=== PATIENT | female | born 1990 | race Hispanic/Latino ===

== ENCOUNTER 2021-12-01 11:39 | Outpatient (CLI) | payer SELFPAY ==
[2021-12-01 12:15] VITALS: BMI 37.0
[2021-12-01 12:53] VITALS: BP 114/72; PULSE 76
[2021-12-01 12:54] VITALS: TEMP 36.8
[2021-12-01 13:19] LABS: ROM Internal Control Test YES-OK TO RESULT pt. (Internal QC); ROM Patient Test Negative (Negative)
--- NOTE | 2021-12-01 18:58 | OB.TRI.NOTE ---
HPI - General HPI Narrative GEMA VALE, is a 31 F who presents for leakage of fluid at 38w4d. PFSH PFSH Home Medications cyanocobalamin (vitamin B-12) [Vitamin B-12] tab PO 12/01/21 [History Last Taken 11/29/21 21:00] [id number] [] tab PO 12/01/21 [History Last Taken 11/29/21 21:00] Allergy/AdvReac Type Severity Reaction Status Date / Time No Known Allergies Allergy Verified 12/01/21 12:18 NST FHR Rate Baby A Baseline: 140 Variability:: Moderate Accelerations:: 15 x 15 Decelerations:: Variable NST Reactive:: Yes Uterine Activity:: Irregular Assessment & Plan (1) Vaginal discharge during : PLAN: 1) ROM plus negative 2) No signs of labor 3) One variable deceleration, reactive strip 4) D/C home
== END 2021-12-01 15:00 | disposition home or self-care (01) ==
LOC: WPOUT 12:05 → WP 12:06
PROVIDERS: Visit Provider Advanced Practice Midwife
DX: O26.893 Other specified pregnancy related conditions, third trimester (principal); N89.8 Other specified noninflammatory disorders of vagina; O76 Abnormality in fetal heart rate and rhythm complicating labor and delivery; Z3A.38 38 weeks gestation of pregnancy
CPT/HCPCS: 59025; 59050; 84112; 99218; G0378

== ENCOUNTER 2021-12-08 09:55 | Inpatient (IN) | payer SELFPAY ==
[2021-12-08] VITALS (15 sets, daily range): BP systolic 91–126; BP diastolic 43–83; PULSE 66–102; RESP 18; TEMP 36.1–37.2; O2SAT 96–98; BMI 37.5
[2021-12-08] MEDS: Lactated Ringers 1,000 ML 999 ML IV (10:15)
[2021-12-08 10:33] LABS: Absolute Neutrophil Count 6.7 X10^3/uL (2.0-7.7); Basophil# 0.02 X10^3/uL; Basophil% 0.2 % (0-1); Eosinophil# 0.06 X10^3/uL; Eosinophils% 0.7 % (0-5); Hematocrit 38.3 % (37-47); Hemoglobin 12.4 g/dL (12.0-15.0); Lymphocyte % 18.7 % (19-41); Mean Corp Hgb Conc 32.4 g/dL (32-36); Mean Corpuscular Hgb 29.5 pg (27.0-32.0); Mean Corpuscular Volume 91.2 fL (81-99); Mean Platelet Vol. 11.4 fl (6.2-12.0); Monocyte# 0.56 X10^3/uL; Monocyte% 6.2 % (0-10); NRBC Flagged by Analyzer 0 % (0-5); Neutrophil # 6.66 X10^3/uL (2.7-7.7); Neutrophil % 73.1 % (47-70); Platelet Count 192 K/mm3 (150-450); RBC Distribution Width CV 14.5 % (11.6-14.6); RBC Distribution Width SD 47.8 fl (35.1-43.9); White Blood Count 9.1 K/mm3 (4.4-11.0)
[2021-12-08] MEDS: Sodium Citrate/Citric Acid 30 ML UDC PO (12:28)
[2021-12-08] MEDS: Cefazolin 2 GM in 0.9% Normal Saline 100 ML IV (12:40)
--- NOTE | 2021-12-08 12:52 | EX.PCM.OBRPT ---
Assessment & Plan (1) Spontaneous onset of labor: (2) 39 weeks gestation of : (3) Previous delivery affecting : Maternal Data Information Final HARRISON: 12/11/21 Gestational age: 39 4/7 Details Operative Information Date of Procedure: 12/08/21 Pre-Operative Diagnosis: labor, previous c/s, suspected LGA fetus Post-Operative Diagnosis: same Indications for : Repeat Elective Classification: CARMINA Procedure Type: low transverse mechanical research engineer #1: Wendy Wolfe Type of Anesthesia: Spinal Anesthesiologist: Aron Bennett Special Medications: duramorph Antibiotic Given: Ancef 2 grams IV x1 Drain: Zapata to straight drain Estimated Blood Loss: 800 Fluids Replaced: 1000 Procedure Start Time: 12:57 Procedure Stop Time: 12:59 Time of Delivery: 13:30 Findings Description of Procedure: Normal uterus tubes and ovaries. No significant intraperitoneal adhesions. Very thin lower uterine segment. The patient was taken to the operating room. She was prepped and draped in the dorsal supine position with a leftward tilt. A Pfannenstiel skin incision was made approximately 2 cm above the symphysis pubis and carried through to underlying layer fascia with the scalpel. The fascia was incised incised in the midline and extended laterally with the Lacey scissors. The fascia was dissected off the rectus muscles with blunt and sharp dissection. The rectus muscles were in the midline and the peritoneum was entered bluntly. The peritoneal incision was stretched and the bladder blade was placed. The uterine incision was made in a low transverse fashion with the scalpel and extended superiorly and inferiorly with blunt dissection. The amniotic membranes were ruptured bluntly and clear amniotic fluid returned. The 's head was brought to the incision in the flexed position and delivered without difficulty. The remainder of the was delivered with gentle traction and fundal pressure in the standard fashion. The mouth and nares were bulb suctioned. The cord was clamped and cut as the infant was stimulated. Cord clamping was delayed. The was handed off to the waiting nursing staff. The placenta was delivered with fundal massage and gentle traction in the standard fashion. The uterus was exteriorized and cleared of all clots and debris. The uterine incision was closed with #1 Vicryl in a running locked fashion. A second layer of the same suture was used in an imbricating fashion. The incision was examined and was found to be hemostatic. The uterus was placed back into the peritoneal cavity and hemostasis was again confirmed. The rectus muscles were examined and any bleeding was Bovie cauterized. The parietal peritoneum and rectus muscles were closed en bloc with an 0 Vicryl running suture. The surgical teams outer gloves were then changed. The rectus fascia was examined and any bleeding was Bovie cauterized and the rectus fascia was closed with 0 PDS suture in a running standard fashion. The subcutaneous tissue was examining and any bleeding was Bovie cauterized. The subcutaneous tissue was reapproximated with 3-0 Vicryl suture. The skin was closed in a subcuticular fashion by the AUTO APPRENTICE MECHANIC with me present in the labor and delivery suite. I performed the remainder of the procedure with assistance. All sponge, lap, and needle counts were correct. The patient was taken to her room for recovery in a stable condition. Presentation: Positive for Vertex Amniotic Membrane Rupture Type: Artificial Amniotic Fluid Description: Clear Placental Delivery Description: Expressed Placenta Disposition: [facility] Specimen(s) Sent to Pathology: none Cord Vessel Description: 3 Vessels Cord Entanglement: None A Gender: Female (1 minute): 8 (5 minute): 9 Delayed Cord Clamping: Yes Complications Complications: none Admit VTE Documentation VTE Present on Admission: No VTE Mechan Device Prophylaxis: SCD's
[2021-12-08] MEDS: Oxytocin 30 units/NS 500 ml 30 UNITS/500 ML IV.SOLN 167 UNITS IV (13:05)
[2021-12-08] MEDS: Acetaminophen 500 MG Tablet 1000 MG PO ×2 (14:15→20:45)
[2021-12-08] MEDS: Lactated Ringers 1,000 ML 150 ML IV (14:23)
[2021-12-08] MEDS: Lactated Ringers 1,000 ML 100 ML IV (14:32)
--- NOTE | 2021-12-08 14:35 | PCM.HP.OB ---
HPI - General General Date of Admission: 12/08/21 HPI Narrative GEMA VALE, is a 31 F who presents in labor w/ h/o previous c/s, arrest of descent. EFW is larger than previous delivery. Maternal Data Information Final HARRISON: 12/11/21 Gestational age: 39 4/7 PFSH PFS Home Medications cyanocobalamin (vitamin B-12) [Vitamin B-12] 1 tab PO DAILY 12/01/21 [History Last Taken 11/29/21 21:00] [id number] [] 1 tab PO DAILY 12/01/21 [History Last Taken 11/29/21 21:00] Allergy/AdvReac Type Severity Reaction Status Date / Time No Known Allergies Allergy Verified 12/01/21 12:18 Social History Smoking Status: Never smoker History Elective abortions Hx Para 1 Spontaneous abortions Hx # Term Pregnancies Ectopic pregnancies Hx # Pregnancies Multiple births # of living children ROS Constitutional Constitutional: Denies fatigue, fever(s) or malaise Eyes Eyes: Denies change in vision ENT HEENT: Denies dizziness or headache(s) Cardiovascular Cardiovascular: Denies chest pain, dyspnea or lightheadedness Respiratory/Chest Respiratory/Chest: Denies cough or dyspnea Gastrointestinal Gastrointestinal: Denies change in bowel habits Genitourinary Genitourinary: Denies burning urination or genital lesions Integumentary Integumentary: Denies rash Neurologic Neurologic: Denies confusion, dizziness, headache(s), numbness or weakness Vital Signs Vital Signs Vital Signs: 12/08/21 10:15 12/08/21 13:40 12/08/21 13:55 Temperature 98.2 F 97.9 F Temperature Source Temporal Pulse Rate 85 78 74 Respiratory Rate 18 18 Respiratory Pattern Normal Blood Pressure 124/83 H 91/43 L 93/61 Blood Pressure Mean 59 71 BP Systolic 124 BP Diastolic 83 Blood Pressure Source Monitor Monitor Blood Pressure Position Semi-Fowlers Semi-Fowlers Blood Pressure Location Right Arm Right Arm Baseline BP 124/83 124/83 Pulse Ox 97 97 Oxygen Delivery Method Room Air Room Air 12/08/21 14:04 12/08/21 14:15 Temperature 98.1 F Temperature Source Temporal Pulse Rate 78 76 Respiratory Rate 18 18 Respiratory Pattern Blood Pressure 101/57 L 106/64 Blood Pressure Mean 71 78 BP Systolic BP Diastolic Blood Pressure Source Monitor Monitor Blood Pressure Position Semi-Fowlers Semi-Fowlers Blood Pressure Location Right Arm Right Arm Baseline BP 124/83 124/83 Pulse Ox 97 97 Oxygen Delivery Method Room Air Room Air Weight Weight: 96.2 kg Body Mass Index (BMI) 37.5 Physical Exam Const alert and no apparent distress General Appearance: cooperative HEENT normocephalic Resp normal respiratory effort Cardio regular rate GI soft to palpation GI Narrative: gravid, nontender, appropriate for gestational age Extremity no calf tenderness General Extremity: edema Skin no wounds Rashes: No rashes noted Psych activity/motor behavior normal Labs Labs Labs: Blood Type A NEGATIVE Antibody Screen NEGATIVE Hct 38.3 % (37-47) Hgb 12.4 g/dL (12.0-15.0) Assessment & Plan (1) Previous delivery affecting : PLAN: Risk benefits and alternatives to repeat section versus trial labor were discussed with patient, her questions were answered to her satisfaction via second miller line and patient desired to proceed with repeat section. (2) 39 weeks gestation of : (3) Spontaneous onset of labor:
--- NOTE | 2021-12-08 17:15 | NURSING ---
All teaching done with assist of translators via IPAD
[2021-12-08] MEDS: Ketorolac 30 MG/ML Syringe IV ×2 (17:26→23:22)
[2021-12-08] MEDS: Ondansetron 4 MG/2 ML Vial IV (19:35)
--- NOTE | 2021-12-08 19:37 | NURSING ---
see vital signs intervention also
--- NOTE | 2021-12-08 19:38 | NURSING ---
see vital sign intervention also
[2021-12-08] MEDS: 0.9% Saline Lock 10 ML Syringe IV (23:22)
[2021-12-09 00:43] VITALS: RESP 18; O2SAT 95
[2021-12-09] MEDS: Acetaminophen 500 MG Tablet 1000 MG PO ×4 (02:15→21:04)
[2021-12-09] MEDS: Enoxaparin 40 MG/0.4 ML Syringe SC (02:15)
[2021-12-09 02:19] VITALS: BP 108/67; PULSE 81; RESP 16; TEMP 35.9; O2SAT 97
[2021-12-09] MEDS: 0.9% Saline Lock 10 ML Syringe IV (06:12)
[2021-12-09] MEDS: Ketorolac 30 MG/ML Syringe IV ×2 (06:13→10:35)
[2021-12-09 06:41] VITALS: BP 108/60; PULSE 78; RESP 18; TEMP 36.8; O2SAT 98
[2021-12-09 06:41] LABS: Hematocrit 33.3 % (37-47); Hemoglobin 10.8 g/dL (12.0-15.0); Mean Corp Hgb Conc 32.4 g/dL (32-36); Mean Corpuscular Hgb 29.7 pg (27.0-32.0); Mean Corpuscular Volume 91.5 fL (81-99); Mean Platelet Vol. 11.3 fl (6.2-12.0); Platelet Count 176 K/mm3 (150-450); RBC Distribution Width CV 14.5 % (11.6-14.6); RBC Distribution Width SD 47.7 fl (35.1-43.9); Red Blood Count 3.64 M/mm3 (4.2-5.4); White Blood Count 13.1 K/mm3 (4.4-11.0)
--- NOTE | 2021-12-09 08:21 | PN.OBGYN_ITS ---
Subjective Subjective Patient seen at bedside. infant. Feeling good. Denies any pain. Denies headache, vision changes, SOB, or CP. Ambulating and voiding without difficulty. Objective Data Objective Data Vital Signs: Vital Signs Temp Pulse Resp BP Pulse Ox 98.2 F 78 18 108/60 98 12/09/21 06:41 12/09/21 06:41 12/09/21 06:41 12/09/21 06:41 12/09/21 06:41 Oxygen Delivery Method Room Air Weight: 212 lb 1.355 oz Body Mass Index (BMI) 37.5 Intake & Output: Intake and Output for Last 24 Hours 12/07/21 12/08/21 12/09/21 23:59 23:59 23:59 Intake Total 4193.17 / 4193.17 Output Total 650 / 650 200 / 200 Balance 3543.17 / 3543.17 -200 / -200 Lab / Micro Data Result Diagrams: 12/09/21 06:25 Labs: Laboratory Results - last 24 hr 12/08/21 10:15: WBC 9.1, RBC 4.20, Hgb 12.4, Hct 38.3, MCV 91.2, MCH 29.5, MCHC 32.4, RDW Std Deviation 47.8 H, RDW Coeff of Ambar 14.5, Plt Count 192, MPV 11.4, Immature Gran % (Auto) 1.100 H, Neut % (Auto) 73.1 H, Lymph % (Auto) 18.7 L, [place] % (Auto) 6.2, Eos % (Auto) 0.7, Baso % (Auto) 0.2, Absolute Neuts (auto) 6.7, Absolute Lymphs (auto) 1.70, Nucleated RBC % 0 12/08/21 10:15: Blood Type A NEGATIVE, Antibody Screen NEGATIVE 12/08/21 15:00: Screen NEGATIVE, Baby's Blood Type O POSITIVE, Baby's NOE NEGATIVE 12/09/21 06:25: WBC 13.1 H, RBC 3.64 L, Hgb 10.8 L, Hct 33.3 L, MCV 91.5, MCH 29.7, MCHC 32.4, RDW Std Deviation 47.7 H, RDW Coeff of Ambar 14.5, Plt Count 176, MPV 11.3 Micro: Microbiology 12/08/21 10:18 Nasal Secretion SARS-CoV-2 Antigen (Rapid) - Final ROS Eyes Eyes: Denies blurry vision, change in vision or spots in vision ENT HEENT: Denies dizziness or headache(s) Cardiovascular Cardiovascular: Denies abdominal pain, chest pain or dyspnea Respiratory/Chest Respiratory/Chest: Denies cough, dyspnea, shortness of breath at rest or shortness of breath with exertion Gastrointestinal Gastrointestinal: Denies abdominal pain, diarrhea or vomiting Genitourinary Genitourinary: Denies change in urinary stream, difficulty urinating or dysuria Musculoskeletal Musculoskeletal: Reports none Integumentary Integumentary: Denies rash Neurologic Neurologic: Denies dizziness, headache(s), memory loss or weakness Physical Exam Narrative Dressing is dry and intact Const alert and no apparent distress General Appearance: cooperative and comfortable Exam Limitations: no limitations HEENT normocephalic Eyes General Eye: normal appearance of both eyes Neck full ROM General: normal visual inspection Chest Chest: symmetrical chest wall rise Resp normal respiratory effort and normal air movement Effort and Inspection: symmetric chest movement Auscultation: clear to auscultation bilaterally Cardio regular rate and regular rhythm GI normal to inspection, nondistended, normoactive bowel sounds Back/Spine normal ROM Extremity full ROM and no calf tenderness General Extremity: normal exam except as noted Skin no rashes or lesions noted Neuro CN's II-XII intact bilaterally Psych mental status grossly normal Assessment & Plan (1) Previous delivery affecting : (2) Care and examination of lactating mother: (3) Language barrier: PLAN: PO Day 1 Repeat C/S Pain control support Routine care Increase ambulation D/C home with follow up in office
--- NOTE | 2021-12-09 08:24 | DS.PCM_ITS ---
Providers Date of Admission: 12/08/21 Reason For Visit: REPEAT C SECTION Diagnosis Discharge Diagnosis (1) Previous delivery affecting : Status: Acute Code(s): O34.219 - Maternal care for unspecified type scar from previous delivery (2) Care and examination of lactating mother: Status: Acute Code(s): Z39.1 - Encounter for care and examination of lactating mother (3) Language barrier: Status: Acute Code(s): Z78.9 - Other specified health status Medications at Discharge Home Medications cyanocobalamin (vitamin B-12) [Vitamin B-12] 1 tab PO DAILY 12/01/21 [id number] [] 1 tab PO DAILY 12/01/21 Hospital Course Operations section Summary of Care Provided Hospital Course: Repeat section- hospital course was uneventful Physical Exam Narrative Dressing is dry and intact Const alert and no apparent distress General Appearance: cooperative and comfortable Exam Limitations: no limitations HEENT normocephalic Eyes General Eye: normal appearance of both eyes Neck full ROM General: normal visual inspection Chest Chest: symmetrical chest wall rise Resp normal respiratory effort and normal air movement Effort and Inspection: symmetric chest movement Auscultation: clear to auscultation bilaterally Cardio regular rate and regular rhythm GI normal to inspection, nondistended, normoactive bowel sounds Back/Spine normal ROM Extremity full ROM and no calf tenderness General Extremity: normal exam except as noted Skin no rashes or lesions noted Neuro CN's II-XII intact bilaterally Psych mental status grossly normal Weight / BMI Weight Weight: 212 lb 1.355 oz Body Mass Index (BMI) 37.5 ABG / Lab / Microbiology Data Result Diagrams: 12/09/21 06:25 Laboratory: Laboratory Results - last 24 hr 12/08/21 10:15: WBC 9.1, RBC 4.20, Hgb 12.4, Hct 38.3, MCV 91.2, MCH 29.5, MCHC 32.4, RDW Std Deviation 47.8 H, RDW Coeff of Ambar 14.5, Plt Count 192, MPV 11.4, Immature Gran % (Auto) 1.100 H, Neut % (Auto) 73.1 H, Lymph % (Auto) 18.7 L, [place] % (Auto) 6.2, Eos % (Auto) 0.7, Baso % (Auto) 0.2, Absolute Neuts (auto) 6.7, Absolute Lymphs (auto) 1.70, Nucleated RBC % 0 12/08/21 10:15: Blood Type A NEGATIVE, Antibody Screen NEGATIVE 12/08/21 15:00: Screen NEGATIVE, Baby's Blood Type O POSITIVE, Baby's NOE NEGATIVE 12/09/21 06:25: WBC 13.1 H, RBC 3.64 L, Hgb 10.8 L, Hct 33.3 L, MCV 91.5, MCH 2 9.7, MCHC 32.4, RDW Std Deviation 47.7 H, RDW Coeff of Ambar 14.5, Plt Count 176, MPV 11.3 Microbiology: Microbiology 12/08/21 10:18 Nasal Secretion SARS-CoV-2 Antigen (Rapid) - Final D/C Instructions Discharge Diet: No restrictions May resume sexual activity in: 6-8 weeks Weight Bearing Status: Weight bearing as tolerated Lifting Restrictions: 20 lbs Call your doctor if your incision/area has: Continuous Slow Oozing, Increased Pain/ Swelling, Increased Redness, Foul Smelling Discharge and Swelling at the incision site Call your doctor if you observe: Fever of 101 or Higher, Inability to urinate, Using more than 1 pad per hour, Shortness of breath, Chest pain, Calf discomfort and Uncontrolled pain Remove Dressing in: 5 days Cleanse incision/area with: Soap & Water and Keep Dressing Clean & Dry Please Follow Up With: Sara Juan CNM When: 1 week in office for incision check or sooner if needed 6 weeks Meaningful Use Info Meaningful Use Diagnoses (Choose all that apply): None applicable Discharge Plan Admission Admit Date/Time: 12/08/21 09:55 Primary Reason for Your Visit: Repeat C/S Attending Provider: Nati Teixeira Discharge Orders/Prescriptions Prescriptions: No Action 1 mg Tablet 1 tab PO DAILY RF: 0 Vitamin B-12 Tablet,Chewable 1 tab PO DAILY RF: 0 Disposition Disposition (needs filled in before D/C Order can be placed): Home, Self Care
[2021-12-09 09:29] VITALS: BP 120/70; PULSE 81; RESP 16; TEMP 36.8; O2SAT 97
[2021-12-09] MEDS: Senna/Docusate Sodium 1 Tablet PO (10:35)
[2021-12-09] MEDS: Prenatal Vits Tablet 1 TABLET PO (13:34)
[2021-12-09 13:39] VITALS: BP 117/68; PULSE 83; RESP 16; TEMP 36.8; O2SAT 97
[2021-12-09] MEDS: Naproxen 500 MG Tablet PO (17:32)
[2021-12-09 21:05] VITALS: BP 100/69; PULSE 82; RESP 16; TEMP 36.6; O2SAT 98
[2021-12-10] MEDS: Naproxen 500 MG Tablet PO ×2 (02:05→09:23)
[2021-12-10] MEDS: Enoxaparin 40 MG/0.4 ML Syringe SC (02:05)
[2021-12-10] MEDS: Acetaminophen 500 MG Tablet 1000 MG PO ×3 (03:05→13:48)
[2021-12-10 03:06] VITALS: BP 112/62; PULSE 84; RESP 16; TEMP 36.4; O2SAT 97
--- NOTE | 2021-12-10 08:18 | PCM.PN.OB ---
Subjective Subjective Doing well per patient and nursing staff. Ambulating and taking PO without difficulty. Voiding and passing flatus. Pain controlled. , services for assistance. Denies headache, visual changes, chest pain, shortness of breath, leg pain or increased bleeding. Lochia normal. Objective Data Objective Data Vital Signs: Vital Signs Temp Pulse Resp BP Pulse Ox 97.5 F L 84 16 112/62 97 12/10/21 03:06 12/10/21 03:06 12/10/21 03:06 12/10/21 03:06 12/10/21 03:06 Oxygen Delivery Method Room Air Weight: 212 lb 1.355 oz Body Mass Index (BMI) 37.5 Intake & Output: Intake and Output for Last 24 Hours 12/08/21 12/09/21 12/10/21 23:59 23:59 23:59 Intake Total 4193.17 / 4193.17 Output Total 650 / 650 550 / 550 Balance 3543.17 / 3543.17 -550 / -550 Lab / Micro Data Result Diagrams: 12/09/21 06:25 Micro: Microbiology 12/08/21 10:18 Nasal Secretion SARS-CoV-2 Antigen (Rapid) - Final ROS Constitutional Constitutional: Reports systems reviewed and no addt'l complaints, except as documented; Denies headache(s) Eyes Eyes: Denies acute decrease in peripheral vision, blurry vision or change in vision ENT HEENT: Reports systems reviewed and no addt'l complaints, except as documented Cardiovascular Cardiovascular: Denies chest pain or dizziness Respiratory/Chest Respiratory/Chest: Denies cough, dyspnea, dyspnea on exertion, shortness of breath at rest or shortness of breath with exertion Gastrointestinal Gastrointestinal: Denies abdominal pain, diarrhea, nausea or vomiting Genitourinary Genitourinary: Denies abdominal discomfort Musculoskeletal Musculoskeletal: Denies limited range of motion Integumentary Integumentary: Reports systems reviewed and no addt'l complaints, except as documented Neurologic Neurologic: Reports systems reviewed and no addt'l complaints, except as documented Psychiatric Psychiatric: Reports systems reviewed and no addt'l complaints, except as documented Endocrine Endocrinology: Reports systems reviewed and no addt'l complaints, except as documented Hematologic/Lymphatic Hematologic/Lymphatic: Reports systems reviewed and no addt'l complaints, except as documented Allergic/Immunologic Allergic/Immunologic: Reports systems reviewed and no addt'l complaints, except as documented Physical Exam Const alert and oriented x3 General Appearance: cooperative Orientation / Consciousness: awake, oriented to person, oriented to place and oriented to time Exam Limitations: no limitations HEENT normocephalic Head and Scalp: normal to inspection, normocephalic and atraumatic Face and Sinus: normal facial exam Eyes General Eye: normal appearance of both eyes Neck full ROM Chest Chest: symmetrical chest wall rise Resp normal respiratory effort and normal air movement Auscultation: clear to auscultation bilaterally Cardio regular rate, regular rhythm, S1 normal heart sound, S2 normal heart sound, no murmurs, no rub, no gallops and no clicks GI normal to inspection, nondistended, normoactive bowel sounds and non-tender appearance of the vagina normal Bladder / Kidney Exam: no CVA tenderness Back/Spine normal ROM Extremity normal to inspection and full ROM Skin no rashes or lesions noted Neuro oriented x3, CN's II-XII intact bilaterally and moves all extremities Sensorium / Orientation: awake, alert and oriented to person Motor Exam: clonus absent Deep Tendon Reflexes: Rt Patellar (L4): 2+ and Lt Patellar (L4): 2+ Assessment & Plan (1) Language barrier: (2) Care and examination of lactating mother: (3) Status post section: (4) Previous delivery affecting : PLAN: 1) Routine care 2) Vitals stable 3) H&H stable, asymptomatic 4) I&Os 5) Planning D/C home today 6) Follow up in 1-2 weeks for incision check and 6 weeks for visit Sr. Unix System Administrator used via telehealth for visit
--- NOTE | 2021-12-10 08:57 | PCM.DC.SUM ---
Providers Date of Admission: 12/08/21 Reason For Visit: REPEAT C SECTION Diagnosis Discharge Diagnosis (1) Language barrier: Status: Acute Code(s): Z78.9 - Other specified health status (2) Care and examination of lactating mother: Status: Acute Code(s): Z39.1 - Encounter for care and examination of lactating mother (3) Status post section: Status: Acute Code(s): Z98.891 - History of uterine scar from previous surgery (4) Previous delivery affecting : Status: Acute Code(s): O34.219 - Maternal care for unspecified type scar from previous delivery Medications at Discharge Home Medications [id number] 1 tab PO DAILY 12/01/21 acetaminophen 1,000 mg PO Q6H #0 tab 12/10/21 naproxen 500 mg PO Q8H #30 tab 12/10/21 Weight / BMI Weight Weight: 212 lb 1.355 oz Body Mass Index (BMI) 37.5 ABG / Lab / Microbiology Data Result Diagrams: 12/09/21 06:25 Microbiology: Microbiology 12/08/21 10:18 Nasal Secretion SARS-CoV-2 Antigen (Rapid) - Final D/C Instructions Discharge Diet: No restrictions May resume sexual activity in: 6-8 weeks Weight Bearing Status: Weight bearing as tolerated Call your doctor if your incision/area has: Continuous Slow Oozing, Increased Pain/ Swelling, Increased Redness, Foul Smelling Discharge and Swelling at the incision site Call your doctor if you observe: Fever of 101 or Higher, Inability to urinate, Using more than 1 pad per hour, Shortness of breath, Chest pain, Calf discomfort and Uncontrolled pain Cleanse incision/area with: Soap & Water and Keep Dressing Clean & Dry Please Follow Up With: Sara Juan CNM When: 1 week in office for incision check or sooner if needed 6 weeks Meaningful Use Info Meaningful Use Diagnoses (Choose all that apply): None applicable Discharge Plan Admission Admit Date/Time: 12/08/21 09:55 Primary Reason for Your Visit: Repeat C/S Attending Provider: Nati Teixeira Discharge Orders/Prescriptions Prescriptions: New acetaminophen 500 mg Tablet 1,000 mg PO Q6H Qty: 0 RF: 0 naproxen 500 mg Tablet 500 mg PO Q8H Qty: 30 RF: 0 Continued hqtqybzf-[id number]-Ul-FA 1 mg Tablet 1 tab PO DAILY RF: 0 Discontinued Vitamin B-12 Tablet,Chewable 1 tab PO DAILY RF: 0 Referrals / Follow Up: Nati Teixeira MD [STAFF PHYSICIAN] - (Follow up in 1 week and 6 weeks) Disposition Disposition (needs filled in before D/C Order can be placed): Home, Self Care
[2021-12-10 09:10] VITALS: BP 109/66; PULSE 70; RESP 16; TEMP 36.7; O2SAT 98
[2021-12-10] MEDS: Prenatal Vits Tablet 1 TABLET PO (09:23)
[2021-12-10] MEDS: Senna/Docusate Sodium 1 Tablet PO (09:23)
[2021-12-10 13:52] VITALS: BP 111/75; PULSE 81; RESP 16; TEMP 37.4; O2SAT 98
--- NOTE | 2021-12-10 14:15 | NURSING ---
Discharge instructions completed with interrupter ipad. Went over signs and symptoms to report for mom and baby and referenced PP booklet that is in [place]. When asked if pt or had any further questions there were none. D/C home in [facility]. F/U appt set with Tami for Monday12/12/21.
== END 2021-12-10 14:05 | disposition home or self-care (01) | DRG 788 ==
PROVIDERS: Obstetrics & Gynecology; Admitting Provider Obstetrics & Gynecology; Visit Provider Obstetrics & Gynecology
DX: O34.219 Maternal care for unspecified type scar from previous cesarean delivery (principal); Z20.822 Contact with and (suspected) exposure to COVID-19; Z37.0 Single live birth; Z3A.39 39 weeks gestation of pregnancy
CPT/HCPCS: 59025; 59050; 85025; 85027; 85461; 86850; 86900; 86901; 87426; 90384; 99218; 99251; J7120; A4216; G0378; G0463; J2405; J2790

== ENCOUNTER 2024-10-03 09:30 | Inpatient (IN) | payer SELFPAY ==
--- NOTE | 2024-10-01 12:23 | HP.PCM_ITS ---
History and Physical Date of Admission: 10/03/24 HPI: The patient is a 34 year old female presenting for pre-operative visit. She is scheduled for and and tubal sterilization , for h/o previous c/s and sterilization request on 10/03/24. Procedure discussed along with risks, benefits and complications. Other alternatives discussed for management. Consent form signed? Yes. ? ? PAST MEDICAL HISTORY PAST MEDICAL HISTORYDiagnosisDate?ASCUS with positive high risk HPV keqnvcwg24/29/2022?Less than 8 weeks gestation of ??Nausea/vomiting in aihrswtxb96/14/2024?Rx for Zofran previously sent. 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 ?Varicose veins of left lower extremity with pain09/21/2021 ? ? PAST SURGICAL HISTORY PAST SURGICAL HISTORYProcedureLateralityDate? DELIVERY ONLY?12/08/2021? LTCS? SECTION HX?01/01/2013 ? ? ? CURRENT MEDICATIONS Current Outpatient MedicationsMedicationSigDispenseRefill?famotidine (PEPCID) 20 mg tabletTake 1 tablet by mouth two times a day.60 tablet3?enoxaparin (LOVENOX) 40 mg/0.4 mLInject 0.4 mL subcutaneously once daily.30 Each4?ferrous sulfate 325 mg (65 mg iron) tabletTake 1 tablet by mouth every other day.15 tablet2? 651-dlzb-xhmpj-omega3 (ONE-A-DAY -1) 27 mg iron- 800 mcg-235 mg capTake 1 tablet by mouth once daily.90 capsule3?aspirin 81 mg chewable tabletTake 1 tablet by mouth once daily.30 tablet3?No current facility-administered medications for this visit. ? ? ALLERGIES: Patient has no known allergies. ? PERSONAL HISTORY: SOCIAL HISTORY Social History?Tobacco Use?Smoking status:Never?Smokeless tobacco:NeverVaping Use?Vaping status:Never UsedSubstance Use Topics?Alcohol use:Not Currently?Drug use:Never ? FAMILY HISTORY: FAMILY HISTORY FAMILY HISTORY ProblemRelationAge of Onset?other (Brain hemorrhage)Father??No Known ProblemsSister??No Known ProblemsSister??No Known ProblemsBrother??No Known ProblemsBrother??No Known ProblemsBrother??No Known ProblemsBrother??No Known ProblemsBrother??No Known ProblemsBrother??No Known ProblemsBrother??No Known ProblemsMaternal Grandmother??No Known ProblemsMaternal Grandfather??No Known ProblemsPaternal Grandmother??No Known ProblemsPaternal Grandfather??No Known ProblemsDaughter? ? ? REVIEW OF SYMPTOMS: GENERAL: denies fevers or chills ENDOCRINOLOGY: has not been on steroids Cardiology : denies palpitations or chest pain Respiratory: denies SOB or cough Hematology: denies history of prolonged bleeding or easy bruising or VTE Allergy: Denies history of personal or family history of allergy to anesthesia ? PHYSICAL EXAMINATION: ? VITALS: Blood pressure 110/74, pulse 82, resp. rate 14, weight 95.9 kg (211 lb 6.4 oz), last menstrual period 01/03/2024, currently . ? GENERAL: The patient is well nourished, well hydrated in no acute distress. , The patient is oriented to time, place, and person. NECK: Supple. No lynphadenopathy, normal thyroid, no thyromegaly. LUNGS: Clear to auscultation bilaterally. no wheezes, rhonchi or rales HEART: Regular rate and rhythm, Normal heart sounds, and No murmurs or gallops abd- soft, nontender, gravid ? IMPRESSION: Estimated Date of Delivery: 10/09/24 ? ? PLAN: The risks/benefits/alternatives and personal involved for the planned c- section and tubal sterilization were reviewed with the patient. Her questions were answered to her satisfaction and she desires to proceed. Consent was signed. I reviewed with her postop instructions and expectations. ? hold lovenox dose on 10/02 in anticipation of surgery ? I have reviewed and updated past medical and surgical history, medications and allergies Assessment & Plan Assessment/Plan (1) Supervision of high risk in third trimester: (2) 39 weeks gestation of : (3) Previous delivery affecting : (4) Sterilization:
[2024-10-03] VITALS (15 sets, daily range): BP systolic 82–124; BP diastolic 52–87; PULSE 67–91; RESP 14–16; TEMP 36.1–36.7; O2SAT 97–100; BMI 36.2
[2024-10-03] MEDS: Lactated Ringers 1,000 ML 999 ML IV (10:30)
[2024-10-03 10:37] LABS: Absolute Lymphocyte Count 1.32 X10^3/uL (0.83-4.51); Absolute Neutrophil Count 5.6 X10^3/uL (2.0-7.7); Basophil# 0.02 X10^3/uL; Basophil% 0.3 % (0-1); Eosinophil# 0.09 X10^3/uL; Eosinophils% 1.2 % (0-5); Hematocrit 33.5 % (37-47); Hemoglobin 10.9 g/dL (12.0-15.0); Lymphocyte # 1.32 X10^3/ul (0.83-4.51); Lymphocyte % 17.4 % (19-41); Mean Corp Hgb Conc 32.5 g/dL (32-36); Mean Corpuscular Hgb 29.8 pg (27.0-32.0); Mean Corpuscular Volume 91.5 fL (81-99); Mean Platelet Vol. 11.7 fl (6.2-12.0); Monocyte# 0.41 X10^3/uL; Monocyte% 5.4 % (0-10); NRBC Flagged by Analyzer 0 % (0-5); Neutrophil # 5.63 X10^3/uL (2.7-7.7); Neutrophil % 74.2 % (47-70); POSITIVE COUNT YES; Platelet Count 165 K/mm3 (150-450); RBC Distribution Width CV 14.5 % (11.6-14.6); RBC Distribution Width SD 47.8 fl (35.1-43.9); Red Blood Count 3.66 M/mm3 (4.2-5.4); White Blood Count 7.6 K/mm3 (4.4-11.0)
[2024-10-03 11:04] LABS: Syphilis Antibodies Nonreactive (Nonreactive)
[2024-10-03] MEDS: Acetaminophen 500 MG Tablet 1000 MG PO ×2 (11:22→17:58)
[2024-10-03] MEDS: Lactated Ringers 1,000 ML 150 ML IV (12:09)
[2024-10-03] MEDS: Sodium Citrate/Citric Acid 30 ML UDC PO (12:09)
[2024-10-03] MEDS: Cefazolin 2 GM in Syringe IV (12:25)
--- NOTE | 2024-10-03 13:13 | EX.PCM.OBRPT ---
Assessment & Plan (1) Sterilization: (2) Previous delivery affecting : (3) 39 weeks gestation of : (4) Supervision of high risk in third trimester: (5) Status post section: Maternal Data Information Final HARRISON: 10/09/24 Gestational age: 39 08/06 Operative Report (OB) Cecarean Details Procedure Type: bilateral salpingectomy Date of Procedure: 10/03/24 Procedure Start Time: 12:32 Procedure Stop Time: 13:12 Time of Delivery: 12:34 Pre-Operative Diagnosis: Repeat Elective and Desires elective sterilization Post-Operative Diagnosis: Same as Pre-operative diagnosis Classification: Scheduled Type of Anesthesia: Spinal Special Medications: duramorph Antibiotic Given: Ancef 2 grams IV x1 Drain: Zapata to straight drain Estimated Blood Loss: 800 Fluids Replaced: 700 Findings Description of surgery: The patient was taken to the operating room. She was prepped and draped in the dorsal supine position with a leftward tilt. A Pfannenstiel skin incision was made approximately 2 cm above the symphysis pubis and carried through to underlying layer fascia with the scalpel. The fascia was incised incised in the midline and extended laterally with the Lacey scissors. The fascia was dissected off the rectus muscles with blunt and sharp dissection. The rectus muscles were in the midline and the peritoneum was entered sharply because the muscles were very adhesed together. The midline was tented up with 2 hemostats and entered sharply.. The peritoneal incision was stretched and the bladder blade was placed. The uterine incision was made in a low transverse fashion with the scalpel and extended superiorly and inferiorly with blunt dissection. The amniotic membranes were ruptured bluntly and clear amniotic fluid returned. The 's head was brought to the incision in the flexed position and delivered without difficulty. The remainder of the was delivered with gentle traction and fundal pressure in the standard fashion. The mouth and nares were bulb suctioned. The cord was clamped and cut as the was stimulated. Cord clamping was delayed approximately 30 seconds. The was handed off to the waiting nursing staff. The placenta was delivered with fundal massage and gentle traction in the standard fashion. The uterus was exteriorized and cleared of all clots and debris. The cervix was dilated with a ring forcep. The uterine incision was closed with #1 Vicryl in a running locked fashion. Several vvxesh-be-tmusz sutures of the same suture were needed and bleeding sinuses to obtain hemostasis. The incision was examined and was found to be hemostatic. The left tube was identified and followed out to the fimbriated end. The LigaSure device was used to clamp, seal and transect the antimesenteric portion of the tube off of the broad ligament. The device was then used to clamp seal and transect the tubal insertion off the cornea and excellent hemostasis of the pedicles was noted. The same procedure was performed on the contralateral side Hemostasis was noted. The uterus was placed back into the peritoneal cavity and hemostasis was again confirmed. The rectus muscles were examined and any bleeding was Bovie cauterized.Hemablast was placed over the uterine incision and over every layer because there was quite a bit of oozing. The parietal peritoneum and rectus muscles were closed en bloc with an 0 Vicryl running suture. Any bleeding in the rectus muscles was secured with Bovie cauterization or 3-0 Vicryl efzkou-cv-evzbk sutures. The rectus fascia was examined and any bleeding was Bovie cauterized and the rectus fascia was closed with #1 PDS suture in a running standard fashion. The subcutaneous tissue was examining and any bleeding was Bovie cauterized. The subcutaneous tissue was reapproximated with 3-0 Vicryl suture. The skin was closed in a subcuticular fashion by the PROGRAMMER DEVELOPER with me present in the labor and delivery suite. I performed the remainder of the procedure with assistance. All sponge, lap, and needle counts were correct. The patient was taken to her room for recovery in a stable condition. Surgical findings: Normal tubes and ovaries bilaterally. Placenta with three-vessel cord. Presentation: Vertex Amniotic Membrane Rupture Type: Artificial Amniotic Fluid Description: Clear Placental Delivery Description: Expressed Placenta Disposition: [facility] Specimen collected: Yes Description of specimen(s) removed: Bilateral fallopian tubes Cord Vessel Description: 3 Vessels Cord Entanglement: None A gender: Female (Monique) (1 minute): 9 (5 minute): 9 Delayed Cord Clamping: Yes Electric Container Tester nuclear criticality safety engineer: Yes Erosion Control Specialist: Luz Fortune Tasks completed by title i assistant: Closing, Hemostasis: Clamp, Hemostasis: Electrocautery and Retracting Additional periodicals library assistant?: No Complications Complications: No Admit VTE Documentation VTE Present on Admission: No VTE Mechan Device Prophylaxis: SCD's VTE Pharm Prophylaxis Ordered: Yes
[2024-10-03] MEDS: Oxytocin 15 Units/NS 250ml 15 UNITS/250 ML IV.SOLN 83 UNITS IV (13:30)
--- NOTE | 2024-10-03 13:30 | FALS_PTH ---
PATIENT: GEMA LAZCANO LOC: [facility] U#:[id number] AGE/SX: 34/F ROOM: WP006 RE10/03/[address]: Dr. Nati Teixeira MD : 1990 BED: 1 DIS: 10/05/2024 SPEC #: [id number] RECD: 10/03/24 14:39 STATUS: MELI ROSANNE #: [id number] HECTOR: 10/03/24 13:[address]: Nati Teixeira DEPT: SURGICAL PATHOLOGY RECD BY: Enrique Altman ENTERED: 10/03/24 14:40 SP TYPE: FALL TUBES OTHR DR: No Primary Care Phys Tissues: Fallopian tube Procedures: Surgery Specimen Level II HEADER OPERATION: Tubal ligation PRE-OP DIAGNOSIS: Sterilization TISSUE SUBMITTED: Bilateral fallopian tubes MICROSCOPIC DIAGNOSIS Right fallopian tube, resection: * No specific pathologic change. Left fallopian tube, resection: * No specific pathologic change. MICROSCOPIC DESCRIPTION Slides are reviewed. GROSS DESCRIPTION Received fresh labeled Gema Lazcano and designated suture right fallopian tubes are two dark red-brown segments of fallopian tube oriented with a surgical suture on the right segment of fallopian tube. The right and left segments of fallopian tube measure 7.5 cm long by 0.9 cm in diameter and 9.0 cm long by 0.9 cm in diameter, respectively. Each segment shows an unremarkable lumen and unremarkable fimbriated end.Cassette Summary:1-two lifeline representatives cross-sections and the entire bisected fimbria of right fallopian tube2-two lifeline representatives cross-sections and the entire bisected fimbria of left fallopian tubeJK. 10/03/2024 CPT:23729c7
[2024-10-03 14:00] LABS: Pathology Specimen OB SEE PATHOLOGY REPORT
[2024-10-03] MEDS: Ketorolac 30 MG/ML Syringe IV ×2 (14:11→20:14)
[2024-10-03] MEDS: 0.9% Saline Lock 10 ML Syringe IV ×2 (18:58→20:14)
[2024-10-03] MEDS: Rho(D) Immune Globulin 300 MCG (1500 Unit) Syringe IV (19:08)
[2024-10-04 00:15] VITALS: BP 113/78; PULSE 66; PULSE 68; RESP 16; RESP 18; TEMP 36.4; O2SAT 100; O2SAT 99
[2024-10-04] MEDS: Acetaminophen 500 MG Tablet 1000 MG PO ×4 (00:31→18:36)
[2024-10-04] MEDS: Enoxaparin 40 MG/0.4 ML Syringe SC (00:31)
[2024-10-04] MEDS: Ketorolac 30 MG/ML Syringe IV ×2 (02:39→08:00)
[2024-10-04] MEDS: 0.9% Saline Lock 10 ML Syringe IV ×2 (02:40→08:00)
[2024-10-04 03:15] VITALS: BP 101/66; PULSE 83; RESP 16; TEMP 36.6; O2SAT 98
[2024-10-04 06:08] LABS: Hematocrit 29.5 % (37-47); Hemoglobin 9.6 g/dL (12.0-15.0); Mean Corp Hgb Conc 32.5 g/dL (32-36); Mean Corpuscular Hgb 29.6 pg (27.0-32.0); Mean Platelet Vol. 10.9 fl (6.2-12.0); Platelet Count 134 K/mm3 (150-450); RBC Distribution Width CV 14.6 % (11.6-14.6); RBC Distribution Width SD 48.5 fl (35.1-43.9); Red Blood Count 3.24 M/mm3 (4.2-5.4); White Blood Count 7.9 K/mm3 (4.4-11.0)
--- NOTE | 2024-10-04 07:46 | PCM.PROGNOTE ---
Subjective Subjective patient seen at bedside, doing well. Patient reports good pain control. lochia mild. pt reports voiding w.o difficulty. pt having some concerns with breast feeding. Objective Data Objective Data Vital Signs: Vital Signs Temp Pulse Resp BP Pulse Ox O2 Del Method 98 F 83 16 101/66 98 Room Air 10/04/24 03:15 10/04/24 03:15 10/04/24 03:15 10/04/24 03:15 10/04/24 03:15 10/04/24 03:15 Oxygen Delivery Method Room Air Weight: 95.708 kg Body Mass Index (BMI) 36.2 Intake & Output: Intake and Output for Last 24 Hours 10/02/24 10/03/24 10/04/24 23:59 23:59 23:59 Intake Total 2097.5 / 2097.5 Output Total 1100 / 1100 200 / 200 Balance 997.5 / 997.5 -200 / -200 Lab / Micro Data 10/04/24 05:55 Labs: Laboratory Results - last 24 hr 10/03/24 10:20: WBC 7.6, RBC 3.66 L, Hgb 10.9 L, Hct 33.5 L, MCV 91.5, MCH 29.8, MCHC 32.5, RDW Std Deviation 47.8 H, RDW Coeff of Ambar 14.5, Plt Count 165, MPV 11.7, Immature Gran % (Auto) 1.500 H, Neut % (Auto) 74.2 H, Lymph % (Auto) 17.4 L, Door % (Auto) 5.4, Eos % (Auto) 1.2, Baso % (Auto) 0.3, Absolute Neuts (auto) 5.6, Absolute Lymphs (auto) 1.32, Nucleated RBC % 0, Syphilis Total Ab Nonreactive, Blood Type A NEGATIVE, Antibody Screen NEGATIVE 10/03/24 15:15: Screen NEGATIVE, Baby's Blood Type A POSITIVE, Baby's NOE NEGATIVE 10/04/24 05:55: WBC 7.9, RBC 3.24 L, Hgb 9.6 L, Hct 29.5 L, MCV 91.0, MCH 29.6, MCHC 32.5, RDW Std Deviation 48.5 H, RDW Coeff of Ambar 14.6, Plt Count 134 L, MPV 10.9 Physical Exam Narrative Exam: abd: fundus firm. Const alert and oriented x3 General Appearance: cooperative HEENT normocephalic Neck General: normal visual inspection GI soft to palpation and non-distended GI Narrative: Fundus firm Extremity normal to inspection and no calf tenderness Skin no rashes or lesions noted Neuro oriented x3 and CN's II-XII intact bilaterally Psych mental status grossly normal Assessment & Plan Assessment/Plan (1) Sterilization: (2) Previous delivery affecting : (3) Delivery by section: PLAN: Plan POD#1 , Doing well Routine care pain mgmt ambulation to consult with patient anticpate dc home tomorrow
[2024-10-04 08:13] VITALS: BP 101/70; PULSE 69; RESP 16; TEMP 36.5; O2SAT 98
[2024-10-04] MEDS: Senna/Docusate Sodium 1 Tablet PO (11:24)
[2024-10-04 11:26] VITALS: BP 113/66; PULSE 79; RESP 16; TEMP 36.1; O2SAT 97
[2024-10-04] MEDS: Ibuprofen 600 MG Tablet PO ×2 (15:23→20:38)
[2024-10-04 15:27] VITALS: BP 107/75; PULSE 51; RESP 16; TEMP 36.6; O2SAT 98
[2024-10-04 20:25] VITALS: BP 106/74; PULSE 68; RESP 16; TEMP 36.4; O2SAT 99
[2024-10-05] MEDS: Enoxaparin 40 MG/0.4 ML Syringe SC (00:09)
[2024-10-05] MEDS: Acetaminophen 500 MG Tablet 1000 MG PO ×2 (00:10→06:31)
[2024-10-05 01:30] VITALS: BP 112/79; PULSE 70; RESP 16; TEMP 36.7; O2SAT 98
[2024-10-05] MEDS: Ibuprofen 600 MG Tablet PO ×2 (03:49→08:48)
[2024-10-05 08:40] VITALS: BP 134/85; PULSE 63; RESP 16; TEMP 36.4; O2SAT 99
--- NOTE | 2024-10-05 10:23 | PN.OBGYN_ITS ---
Subjective Subjective Doing well per patient and nursing staff. Ambulating and taking PO without difficulty. Voiding and passing flatus. Pain controlled. , services for assistance. Denies headache, visual changes, chest pain, shortness of breath, leg pain or increased bleeding. Lochia normal.Bulgarian speaking Objective Data Objective Data Vital Signs: Vital Signs Temp Pulse Resp BP Pulse Ox O2 Del Method 97.5 F L 63 16 134/85 H 99 Room Air 10/05/24 08:40 10/05/24 08:40 10/05/24 08:40 10/05/24 08:40 10/05/24 08:40 10/05/24 08:40 Oxygen Delivery Method Room Air Weight: 211 lb Body Mass Index (BMI) 36.2 Intake & Output: Intake and Output for Last 24 Hours 10/03/24 10/04/24 10/05/24 23:59 23:59 23:59 Intake Total 2097.5 / 2097.5 Output Total 1100 / 1100 700 / 700 Balance 997.5 / 997.5 -700 / -700 Lab / Micro Data 10/04/24 05:55 ROS Constitutional Constitutional: Reports systems reviewed and no addt'l complaints, except as documented; Denies headache(s) Eyes Eyes: Denies acute decrease in peripheral vision, blurry vision or change in vision ENT HEENT: Reports systems reviewed and no addt'l complaints, except as documented Cardiovascular Cardiovascular: Denies chest pain or dizziness Respiratory/Chest Respiratory/Chest: Denies cough, dyspnea, dyspnea on exertion, shortness of breath at rest or shortness of breath with exertion Gastrointestinal Gastrointestinal: Denies abdominal pain, diarrhea, nausea or vomiting Genitourinary Genitourinary: Denies abdominal discomfort Musculoskeletal Musculoskeletal: Denies limited range of motion Integumentary Integumentary: Reports systems reviewed and no addt'l complaints, except as documented Neurologic Neurologic: Reports systems reviewed and no addt'l complaints, except as documented Psychiatric Psychiatric: Reports systems reviewed and no addt'l complaints, except as documented Endocrine Endocrinology: Reports systems reviewed and no addt'l complaints, except as documented Hematologic/Lymphatic Hematologic/Lymphatic: Reports systems reviewed and no addt'l complaints, except as documented Allergic/Immunologic Allergic/Immunologic: Reports systems reviewed and no addt'l complaints, except as documented Physical Exam Const alert and oriented x3 General Appearance: cooperative Orientation / Consciousness: awake, oriented to person, oriented to place and oriented to time Exam Limitations: no limitations HEENT normocephalic Head and Scalp: normal to inspection, normocephalic and atraumatic Face and Sinus: normal facial exam Eyes General Eye: normal appearance of both eyes Neck full ROM Chest Chest: symmetrical chest wall rise Resp normal respiratory effort and normal air movement Auscultation: clear to auscultation bilaterally Cardio regular rate, regular rhythm, S1 normal heart sound, S2 normal heart sound, no murmurs, no rub, no gallops and no clicks GI normal to inspection, nondistended, normoactive bowel sounds and non-tender GI Narrative: dressing dry and intact appearance of the vagina normal Bladder / Kidney Exam: no CVA tenderness Back/Spine normal ROM Extremity normal to inspection and full ROM Skin no rashes or lesions noted Neuro oriented x3, CN's II-XII intact bilaterally and moves all extremities Sensorium / Orientation: awake, alert and oriented to person Motor Exam: clonus absent Deep Tendon Reflexes: Rt Patellar (L4): 2+ and Lt Patellar (L4): 2+ Assessment & Plan (1) Delivery by section: (2) Sterilization: (3) Lactating mother: (4) Language barrier: PLAN: Plan 1) Routine care, POD #2 2) Vitals signs stable 3) Pain controlled 4) , services PRN 5) D/C home 6) Follow up in 1 week and 6 weeks
--- NOTE | 2024-10-05 10:35 | PCM.DC.SUM ---
Providers Date of Admission: 10/03/24 Primary Care Physician: Albertina Primary Care Phys Reason For Visit: REPEAT Diagnosis Discharge Diagnosis (1) Delivery by section: Status: Acute (2) Sterilization: Status: Acute Code(s): Z30.2 - Encounter for sterilization (3) Lactating mother: Status: Acute Code(s): Z39.1 - Encounter for care and examination of lactating mother (4) Language barrier: Status: Acute Code(s): Z78.9 - Other specified health status Plan 1) Routine care, POD #2 2) Vitals signs stable 3) Pain controlled 4) , services PRN 5) D/C home 6) Follow up in 1 week and 6 weeks Medications at Discharge Home Medications nchuzdlm-qvr-Pq-FA 1 mg tablet 1 tab PO DAILY Check with primary doctor 12/01/21 ferrous sulfate 325 mg (65 mg iron) tablet (iron) 325 mg PO QODAY anemi 10/03/24 acetaminophen 500 mg tablet 1,000 mg (2 x 500 mg) PO Q6H #0 tabs 10/05/24 ibuprofen 600 mg tablet 600 mg PO Q6H #0 tabs 10/05/24 sennosides 8.6 mg-docusate sodium 50 mg tablet (Stimulant Laxative Plus) 1 - 2 tab PO DAILY #0 tabs 10/05/24 Hospital Course Summary of Care Provided Minutes Spent on Discharge: 15 Hospital Course: Presented on 10/03/24 for repeat Low transverse section with bilateral salpingectomy tubal sterilization. Postoperative course uncomplicated. Discharge home on postoperative day # 2. Weight / BMI Weight Weight: 211 lb Body Mass Index (BMI) 36.2 ABG / Lab / Microbiology Data 10/04/24 05:55 D/C Instructions Discharge Diet: No restrictions May resume sexual activity in: 6 weeks Weight Bearing Status: Full weight bearing Lifting Restricted to (Lbs): 20 Call your doctor if your incision/area has: Continuous Slow Oozing, Sudden Increased Bleeding, Increased Pain/ Swelling, Increased Redness, Foul Smelling Discharge and Swelling at the incision site Call your doctor if you observe: Fever of 101 or Higher, Inability to urinate, Inability to have a bowel movement, Using more than 1 pad per hour, Shortness of breath, Dizziness, Fainting spells, Chest pain, Increased palpitations (irregular heartbeat), Calf discomfort and Uncontrolled pain Suture Line Care: Avoid Pulling/Pushing Remove Dressing in: 1 week Cleanse incision/area with: Keep Dressing Clean & Dry DC O2, CPAP, BIPAP Needs Home O2 Discharge instructions: No Meaningful Use Info Meaningful Use Meaningful Use Diagnoses (Choose all that apply): None applicable Ischemic Stroke Statin Dosing Therapy Reference: STATIN DOSE THERAPY REFERENCE: * Patients > 75 years receive moderate or high dose statin therapy. * Patients 75 years or YOUNGER should receive HIGH intensity statin dose unless contraindicated. You will be required to document reason for non-treatment if statin daily dose does not meet guidelines. HIGH DOSE STATIN THERAPY DAILY Atorvastatin > than or = to 40 mg Rosuvastatin > than or = to 20 mg Amlodipine + Atorvastatin > than or = to 2.5/40 mg Ezetimibe + Simvastatin 10/80 mg Simvastatin 80mg Discharge Plan Admission Admit Date/Time: 10/03/24 09:30 Primary Reason for Your Visit: Repeat section and tubal sterilization Attending Provider: Nati Teixeira Primary Care Provider: Care PhysicianAlbertina Primary Discharge Orders/Prescriptions Prescriptions: New sennosides-docusate sodium [Stimulant Laxative Plus] 8.6-50 mg Tablet 1 - 2 tab PO DAILY Qty: 0 0RF acetaminophen 500 mg Tablet 1,000 mg PO Q6H Qty: 0 0RF ibuprofen 600 mg Tablet 600 mg PO Q6H Qty: 0 0RF Continued vazfqyup-bdf-Xg-FA 1 mg Tablet 1 tab PO DAILY ferrous sulfate [iron] 325 mg (65 mg iron) tablet 325 mg PO QODAY Discontinued aspirin 81 mg tablet,chewable 1 tab PO DAILY enoxaparin 40 mg/0.4 mL syringe 40 mg subcut DAILY famotidine 20 mg tablet 20 mg PO BID famotidine 40 mg tablet 40 mg PO DAILY Referrals / Follow Up: Care Physician,No Primary [Primary Care Provider] - Disposition Disposition (needs filled in before D/C Order can be placed): Home, Self Care
--- NOTE | 2024-10-05 11:41 | NURSING ---
Case number from video chat- [id number]
--- NOTE | 2024-10-05 12:00 | CASEMGMT ---
Social Work Assessment Labor and Delivery Unit Patient Address: [place] [address] Phone number: [phone] or [phone] Date of Referral: 10/04/24 Time of Referral: 20:42 Referred By: Nati Teixeira Date of Intervention: 10/05/2024 Time of Intervention: 11:58 Reason for Referral: Resources History obtained from: Medical records, mother of baby (MOB) and father of baby (FOB).? Household composition: MOB, FOB (Daphnie Frank), MOB?s11yo daughter Ann-Marie Lazcano and MOB and FOB?s almost 3 yo daughter Esme Lazcano and daughter Cary Lazcano, born on 10/03/2024. FOB has 2 daughters who do not live with him. Patient's parent/guardian status: MOB and FOB have been together for 4 years and for 3 years . ??Both are actively involved and will be providing care for baby. MOB denied any concerns with domestic violence and described a positive and supportive relationship with the FOB. Medical History: ?MOB received PNC through [facility] beginning at 10 weeks and 0 days. Visits were observed to be routine. Apgars: 8 and 9. Weight: 3.36 kg. Editor Managing Director: Dr. Chowdhury. Educational Status: MOB and FOB denied any issues or concerns with reading or writing however requires reading.and writing in [place] language which is in [place]. MOB attended high school through the 10th grade and the FOB has not had education past elementary school. Financial Status: MOB and FOB reported their income is sufficient to meet the needs of their family at this time. MOB is currently a bjiw-io-bfik mom (SAHM) and the FOB is employed full-time. Supplies: MOB and FOB reported they have all the supplies they need for baby at this time including but not limited to: Car Seat, crib, diapers, bottles and clothing. The hospital is assisting with getting the MOB a breast pump. At admission, MOB and FOB had not yet obtained a car seat, however had one that was observed in the room at the time of assessment/discharge. Childcare/Caregiver(s):? MOB identified herself as the primary caregiver as a SAHM. The FOB has family that can also help if ever needed and the FOB will assist during times he is home. Transportation:? MOB and FOB reported they are both licensed drivers and have a reliable vehicle to take baby to and from all medical appointments. No transportation issues identified. Programs/Agencies Involved: MOB and FOB denied any current programs or agencies involved at this time however social work associate provided verbal and written education on how to apply for Medicaid which both verbalized they understood. MOB reported they have someone who can assist with translation with written materials provided and social work associate also stated [facility] also can assist with options available in [place]ian. Children Services/Legal Issues:? Denied. Behavioral Health Issues: ??Mental Health History: ?Denied?Substance Use History:? Denied. FOB reported he drinks minimally 1-2 times per week which typically includes either a shot or 1-2 beers. ?Drug Screens: ?None obtained at the time of this admission. ? Family/Social Stressors: ?MOB and FOB denied any current family or social stressors. Support Systems: Ample.? ISABELLE identified her biggest supports as the FOB and the FOB?s 3 sisters and 2 brothers, all of whom live local. Depression/Shaken Baby/Safe Sleeping: forest nursery worker provided verbal and written education on PPD, Safe Sleeping and Shaken Baby.? Parents verbalized an understanding. ??? ASSESSMENT:? MOB and FOB provided consent to social work visit. Patient?s nurse had the systems security analyst on the iPad (employee id: [id number]). Upon arrival, MOB and FOB were waiting to be discharged.? Baby was lying in crib. Both MOB and FOB were both very cooperative and verbally engaged.? [place] was observed to be dressed in what appeared to be a new, clean outfit to go home in. MOB denied any stressors/concerns at this time. House Parent observed positive interaction between everyone. At the end of the assessment, the MOB and FOB agreed for social work associate to interview the MOB alone.? ISABELLE reported feeling safe in her home environment and denied any previous or current domestic violence, drug or [id number] abuse either with herself or the FOB and also denied any unmanaged mental health with either herself or the FOB. Safe Plan of Care for infant related to substance use: N/A; not needed. ? PLAN:? Baby to be discharged home when ready.? forest nursery worker also provided written information on depression, depression resources and Help Me Grow as additional resources offered by social work associate which MOB and FOB accepted. No other services requested or indicated. Roxy Munroe, STAVE PLANER TENDER, ADVERTISING TRAFFIC MANAGER
== END 2024-10-05 12:15 | disposition home or self-care (01) | DRG 785 ==
PROVIDERS: Admitting Provider Obstetrics & Gynecology; Referring Provider Obstetrics & Gynecology; Visit Provider Obstetrics & Gynecology
PROC: 10D00Z1 Extraction of Products of Conception, Low, Open Approach (ICD-10-PCS; CPT 59514; principal; 2024-10-03 11:45)
DX: O34.211 Maternal care for low transverse scar from previous cesarean delivery (principal); Z30.2 Encounter for sterilization; Z37.0 Single live birth; Z3A.39 39 weeks gestation of pregnancy
CPT/HCPCS: 59025; 59050; 85025; 85027; 85461; 86780; 86850; 86900; 86901; 88302; 90384; A4216; J2405; J2790; J2791